=== PATIENT | female | born 1950 | race Caucasian/White ===

== ENCOUNTER 2017-12-03 12:21 | Observation (INO) ==
--- NOTE | 2017-12-03 12:33 | Emergency Department Note ---
Disposition Clinical Impression: Unstable angina Chest pain Qualifiers: Chest pain type: unspecified Qualified Code(s): R07.9 - Chest pain, unspecified Disposition: Admitted As Inpatient Condition: Fair Time of Disposition: 13:09 Chest Pain HPI - General Chief Complaint: ED Chest Pain Stated Complaint: MARILIN Time Seen by Provider: 12/03/17 12:24 Source: patient Mode of arrival: EMS Limitations: no limitations Vital Signs Reviewed: Yes Nursing Notes Reviewed: Yes - History of Present Illness HPI Narrative: 67-year-old female presents for evaluation of chest pain. She noted 2 days ago where she initially had chest pain that radiate into her left neck and jaw. States that that resolved spontaneously. Prior to arrival the patient noted pain was nonexertional. Located in the center of her chest. Without radiation. No history of this pain the past. Patient did feel short of breath and went down to the floor because the pain. Patient denies any nausea or vomiting. No diaphoresis. Patient has history of heart attacks. Denies pulmonary embolisms or blood clots. States that she is concerned because her family always passed with from heart attacks. Patient is tearful on exam. Patient's currently pain-free upon EMS arrival. Received full dose aspirin as well as 2 nitroglycerin prehospital which improved the patient's pain. - Related Data Allergies Allergy/AdvReac Type Severity Reaction Status Date / Time Penicillins [PCN] Allergy Swelling Verified 12/03/17 13:38 of Lip/Tongue/Throat All systems ED: reviewed and negative except as stated. Constitutional: Reports: as per HPI Eyes: Reports: as per HPI ENT ED: Reports: as per HPI Cardiovascular: Reports: as per HPI, chest pain Respiratory: Reports: as per HPI, dyspnea. Denies: cough Gastrointestinal: Reports: as per HPI. Denies: abdominal pain, nausea, vomiting Genitourinary: Reports: as per HPI Musculoskeletal: Reports: as per HPI Integumentary: Reports: as per HPI Neurological: Reports: as per HPI Psychiatric: Reports: as per HPI Chest Pain PMH - Past Medical History Medical history: Reports: GERD, hyperlipidemia, hypertension Surgical history: Reports: - Social History Smoking Status: Never smoker Alcohol use: Reports: none Physical Exam - General Limitations: no limitations General appearance: alert, in no apparent distress, anxious - Head Head exam: atraumatic, normocephalic, normal inspection - Eye Eye exam: Present: normal appearance, EOMI - ENT ENT exam: normal exam, normal oropharynx, mucous membranes moist - Neck Neck exam: Present: normal inspection, trachea midline - Chest Chest inspection: Present: normal inspection, symmetric chest wall rise - Respiratory Respiratory exam: Present: normal lung sounds bilaterally. Absent: respiratory distress - Cardiovascular Cardiovascular exam: Present: regular rate, normal rhythm. Absent: systolic murmur - Abdominal Exam Abdominal exam: Present: soft, Non-Tender - Extremities Exam Extremities exam: Present: normal inspection. Absent: pedal edema - Back Exam Back exam: Present: normal inspection - Neurological Exam Neurological exam: Present: alert, oriented X3 - Skin Skin exam: Present: warm, dry, intact, normal color Course Course Narrative: Patient seen and examined. Patient received full dose aspirin as well as nitroglycerin in route. Patient's pain free initially. She will get cardiac evaluation including EKG labs and troponin. Patient disposition is pending. - Reevaluation(s) Reevaluation #1: Patient's been resting currently. Time: 13:32 Vital Signs Temperature 98.0 F 12/03/17 12:23 Pulse Rate 81 12/03/17 12:23 Respiratory Rate 22 12/03/17 12:23 Blood Pressure 126/83 12/03/17 12:23 O2 Sat by Pulse Oximetry 97 12/03/17 12:23 Temperature 98.0 F 12/03/17 12:23 Pulse Rate 70 12/03/17 13:25 Respiratory Rate 15 12/03/17 14:15 Blood Pressure 108/81 12/03/17 14:15 O2 Sat by Pulse Oximetry 98 12/03/17 13:25 Oxygen Delivery Oxygen Delivery Room Air Chest Pain - [facility] Narrative Medical decision making narrative: 67-year-old female presented for evaluation of chest pain. Patient does have risk factors which include hypertension and diabetes. Patient pain was relieved with nitroglycerin prior to arrival. Patient EKG shows no acute changes. However the patient's symptom onset was just prior to arrival. Patient's labs reviewed. Patient would best be monitored as an inpatient with inpatient evaluation of stress test and continued cardiopulmonary monitoring. Patient did have a negative cardiac evaluation versus car. However the patient does have concerning history of unstable angina with 2 prior episodes. Patient' s acute onset of symptoms and has a negative troponin. Patient would likely need training troponins and possibly a stress test. Patient's agreeable with this plan of care. - Lab Data Lab results reviewed: Yes I reviewed the patient's lab results. Result diagrams: 12/03/17 12:48 12/03/17 12:48 Lab Results 12/03/17 12/03/17 12/03/17 Range/Units 12:48 12:48 12:48 WBC 6.5 (4.3-11.1) K/mcL RBC 4.64 (3.82-4.97) M/mcL Hgb 13.7 (11.5-15.4) g/dL Hct 41.8 (35.3-44.9) % MCV 90.1 (83.0-100.0) fL MCH 29.5 (28.0-33.3) pg MCHC 32.8 (31.6-35.5) g/dL RDW 13.5 (11.5-14.5) % Plt Count 292 (140-400) K/mcL MPV 10.1 (9.4-12.4) fL Immature Gran % 0.5 (0-4) % Seg Neutrophils % 56.9 % Lymphocytes % 31.2 % Monocytes % 9.1 % Eosinophils % 1.7 % Basophils % 0.6 % Neutrophils # 3.7 (1.6-8.9) K/mcL Lymphocytes # 2.0 (0.6-4.6) K/mcL Monocytes # 0.6 (0.0-1.3) K/mcL Eosinophils # 0.1 (0.0-0.6) K/mcL Basophils # 0.0 (0.0-0.2) K/mcL PT 10.5 (9.4-12.1) Seconds INR 1.0 APTT 28.5 (26.0-36.0) Seconds Sodium (136-145) mEq/L Potassium (3.5-5.1) mEq/L Chloride (98-107) mEq/L Carbon Dioxide (23-29) mEq/L BUN (8-23) mg/dL Creatinine (0.60-1.20) mg/dL Est GFR ( Amer) (> 60) Est GFR (Non-Af Amer) (> 60) BUN/Creatinine Ratio (6-26) Glucose (70-105) mg/dL Calculated Osmolality (280-300) Calcium (8.6-10.3) mg/dL Troponin I (< 0.04) ng/mL B-Natriuretic Peptide 13 (Less than 100) pg/mL 12/03/17 12/03/17 Range/Units 12:48 12:48 WBC (4.3-11.1) K/mcL RBC (3.82-4.97) M/mcL Hgb (11.5-15.4) g/dL Hct (35.3-44.9) % MCV (83.0-100.0) fL MCH (28.0-33.3) pg MCHC (31.6-35.5) g/dL RDW (11.5-14.5) % Plt Count (140-400) K/mcL MPV (9.4-12.4) fL Immature Gran % (0-4) % Seg Neutrophils % % Lymphocytes % % Monocytes % % Eosinophils % % Basophils % % Neutrophils # (1.6-8.9) K/mcL Lymphocytes # (0.6-4.6) K/mcL Monocytes # (0.0-1.3) K/mcL Eosinophils # (0.0-0.6) K/mcL Basophils # (0.0-0.2) K/mcL PT (9.4-12.1) Seconds INR APTT (26.0-36.0) Seconds Sodium 140 (136-145) mEq/L Potassium 3.9 (3.5-5.1) mEq/L Chloride 109 H (98-107) mEq/L Carbon Dioxide 25 (23-29) mEq/L BUN 15 (8-23) mg/dL Creatinine 0.74 (0.60-1.20) mg/dL Est GFR ( Amer) > 60 (> 60) Est GFR (Non-Af Amer) > 60 (> 60) BUN/Creatinine Ratio 20 (6-26) Glucose 113 H (70-105) mg/dL Calculated Osmolality 292 (280-300) Calcium 9.0 (8.6-10.3) mg/dL Troponin I < 0.03 (< 0.04) ng/mL B-Natriuretic Peptide (Less than 100) pg/mL - Radiology Data Radiology results reviewed: Yes I reviewed the patient's radiology results. Chest X-Ray 12/03/17 12:30 IMPRESSION: The chest appears clear without acute cardiopulmonary process. D/ / Jeremie Cotton MD / Jeremie Cotton MD Interpreting Provider: Jeremie Cotton MD - EKG Data EKG attestation: Yes I reviewed and interpreted this EKG. EKG shows normal: sinus rhythm Rate: normal Rhythm: NSR [place]/QRS: normal Q waves: aVR, aVF T wave inversions noted in: v1 When compared to previous EKG there are: no significant changes Interpretation: no acute changes SKelsy - Dimitri Situation: Demographics Background: Presenting Complaint Assessment: Vital Signs, Course and respsone to treatment, Patient/Family Expectation Recommendation: Barrier(s) to disposition, Recommendation based on pending studies, treatments, or consults Dimitri Report Given to: Dr. Sowmya Mosley Repor Time: 13:31 Attestation Statement - Attestation Attestation: I examined this patient and my medical decision-making was reviewed with the Resident Physician. I agree with the documented findings, disposition and treatment plan as described except to the extent set forth below. 67-year-old female presents to the emergency department because of chest pain. For the past couple of weeks she has had increasing episodes of substernal chest discomfort with occasional radiation to her arm. Denies specific exertional provocation of symptoms. She has had several episodes of weakness and diaphoresis in association with the chest discomfort. No fevers or chills. No abdominal pain. No leg swelling. No recent long distance travel. It is important to note that her mother one year ago today. Pleasant but anxious female in no apparent physiologic distress. Neck is supple trachea midline. Chest is clear to auscultation bilaterally. No JVD. No carotid bruits appreciated by auscultation. Cardiac exam is regular without rubs or gallops. Abdomen soft, nondistended and nontender. Chest wall is nontender. Extremity is warm and dry without asymmetric edema. No calf tenderness. EKG was normal Initial round of labs are unremarkable. No further episodes in the ED. Due to the recent escalation of her symptoms and increasing intensity of the symptoms she will be admitted for further cardiac evaluation
[2017-12-03 12:55] LABS: Basophils % 0.6 %; Eosinophils # 0.1 K/mcL (0.0-0.6); Eosinophils % 1.7 %; Hematocrit 41.8 % (35.3-44.9); Hemoglobin 13.7 g/dL (11.5-15.4); Immature Granulocytes % 0.5 % (0-4); Lymphocytes % 31.2 %; Mean Corpuscular HGB Conc 32.8 g/dL (31.6-35.5); Mean Corpuscular Hemoglobin 29.5 pg (28.0-33.3); Mean Corpuscular Volume 90.1 fL (83.0-100.0); Mean Platelet Volume 10.1 fL (9.4-12.4); Monocytes # 0.6 K/mcL (0.0-1.3); Monocytes % 9.1 %; Neutrophils # 3.7 K/mcL (1.6-8.9); Platelet Count 292 K/mcL (140-400); Red Blood Count 4.64 M/mcL (3.82-4.97); Red Cell Distribution Width 13.5 % (11.5-14.5); Segmented Neutrophils % 56.9 %
[2017-12-03 13:00] LABS: Prothrombin Time 10.5 Seconds (9.4-12.1)
[2017-12-03 13:03] LABS: Activated Partial Thrombo Time 28.5 Seconds (26.0-36.0)
[2017-12-03 13:15] LABS: BUN/Creatinine Ratio 20 (6-26); Blood Urea Nitrogen 15 mg/dL (8-23); Carbon Dioxide 25 mEq/L (23-29); Chloride 109 mEq/L (98-107); Glucose 113 mg/dL (70-105); Osmolality,Calculated 292 (280-300); Potassium 3.9 mEq/L (3.5-5.1); Sodium 140 mEq/L (136-145); eGFR For African Americans > 60 (> 60); eGFR For Non-African Americans > 60 (> 60)
[2017-12-03] MEDS ORDERED: Ondansetron 4 MG/2 ML VIAL IVP PRN (17:58)
[2017-12-03] MEDS ORDERED: *HR* HYDROcodone/Acet 5/325 mg TABLET PO PRN (17:58)
[2017-12-03] MEDS ORDERED: *HR* Morphine 2 MG/ML SYRINGE IVP PRN (17:58)
[2017-12-03] MEDS ORDERED: Naloxone 0.4 MG/ML INJ IVP PRN (17:58)
[2017-12-03] MEDS ORDERED: Acetaminophen 325 MG TABLET PO PRN (17:58)
[2017-12-03] MEDS ORDERED: Nitroglycerin 0.4 MG TAB.SUBL SL PRN (18:01)
--- NOTE | 2017-12-03 18:06 | Internal Med History&Physical ---
Date of Encounter: 12/03/17 Time of Encounter: 18:03 Assessment and Plan (1) Chest pain Current visit: Yes Status: Acute Will place the pt into tele for observation Since pt is high risk for ACS with age, HLD and FHx of CAD will place the pt on tele check serial troponin so far negative troponin Reviewed CXR no acute infiltrates Reviewed her EKG showed NSR, No ST T changes will start the pt on ASA, Morphine IV PRN, Nitro PRN will check FLP in AM will do stress test in AM NPO after mid night Qualifiers: Chest pain type: unspecified Qualified Code(s): R07.9 - Chest pain, unspecified (2) HLD (hyperlipidemia) Current visit: Yes Status: Acute checl FLP in AM on statin Qualifiers: Hyperlipidemia type: unspecified Qualified Code(s): E78.5 - Hyperlipidemia , unspecified (3) Anxiety Current visit: Yes Status: Acute Resumed home meds started her on Ativan PRN Internal Medicine - H&P: HPI Chief complaint: Chest pain Admitted From: Emergency Dept Plans for Post Hospital Care: Home History of present illness: Ms. Martinez is 67-year-old female with known PMH of HLD, GERD and Anxiety pt presented to ER with chest pain from last 3 days. Pt c/o intermittent CP located sub sternally, more like tightness and non radiating, 5/10 in severity. Pt also mentioned her mother last year same day, since then she gets some anxiety spells too. Pt denied any nausea / vomiting. Denied any SOB. Denied recent travel history. Past Med Surg Social Fam HX - Past Medical History Medical history: GERD, hyperlipidemia, hypertension Psychiatric history: anxiety, depression, panic disorder - Past Surgical History Surgical History: - Social History Smoking Status: Never smoker Smokeless Tobacco Status: No Alcohol use: none Drug use: none - Family History Mother Living Status: Hx Family Cardiac Disorders: Yes (AR, heart stents) Hx Family Respiratory Disorders: Yes (COPD) Hx Family Cancer: Yes (kidney CA, Skin CA) Hx Family GI Disorders: Yes (IBS) Hx Family Genitourinary Disorders: No Hx Family Endocrine Disorder: No Hx Family Musculoskeletal Disorders: No Hx Family Neuromuscular Disorders: No Hx Family Neurologic Disorders: No Hx Family HEENT Disorders: No Hx Family Autoimmune Disorders: No Hx Family Reproductive Disorders: No Hx Family Psychosocial Disorders: No Hx Family Medical Disorders: No Father Hx Family Cardiac Disorders: Yes (AR, CABG) Internal Medicine - H&P: Meds Aspirin [Lo-Dose Aspirin EC] 81 mg PO HS 12/03/17 [History] Atorvastatin [Lipitor] 40 mg PO HS 12/03/17 [History] [place]-3/Dha/Epa/Fish Oil [Fish Oil 1,000 mg Softgel] 1 cap PO HS 12/03/17 [ History] Omeprazole [PriLOSEC] 20 mg PO HS 12/03/17 [History] PARoxetine HCl [Paroxetine HCl] 20 mg PO HS 12/03/17 [History] 3 Allergy/AdvReac Type Severity Reaction Status Date / Time Penicillins [PCN] Allergy Swelling Verified 12/03/17 13:38 of Lip/Tongue/Throat All Systems PM: A 10-system review of systems was performed and is negative for pertinent findings except as documented above in the HPI. Review of systems: Reviewed all the systems everything is benign except the systems and symptoms I mentioned in HPI - Constitutional Vitals: Temp Pulse Resp BP Pulse Ox 98.2 F 71 18 118/60 96 12/03/17 14:35 12/03/17 14:35 12/03/17 14:35 12/03/17 14:35 12/03/17 14:52 General appearance: Present: A&O X 3, no acute distress, answers questions appropriately - Head Head exam: Present: atraumatic, normal inspection - Neck Neck exam general surgery: Present: supple - Respiratory Respiratory exam: Present: decreased breath sounds. Absent: rales, respiratory distress, rhonchi, wheezes - Cardiovascular Cardiovascular exam: Present: RRR, +S1, +S2. Absent: tachycardia - GI/Abdominal GI/Abdominal exam: Present: normal bowel sounds, soft. Absent: rebound, rigid, tenderness - Extremities Exam Extremities exam: Absent: calf tenderness, pedal edema, tenderness - Back Exam Back exam: Absent: CVA tenderness (L), CVA tenderness (R) - Neurological Exam Neurological exam: Present: alert, oriented X3 - Psychiatric Psychiatric exam: Present: normal affect, normal mood - Skin Skin exam: Absent: rash Internal Med - H&P Results - Labs CBC & Chem 7: 12/03/17 12:48 12/03/17 12:48
[2017-12-03] MEDS ORDERED: *HR* LORazepam 0.5 MG TABLET PO PRN (18:12)
[2017-12-03] MEDS ORDERED: Omega-3/Dha/Epa/Fish Oil [Fish Oil 1,000 Mg Softgel] PO SCH (21:00)
[2017-12-03] MEDS ORDERED: Aspirin Enteric Coated 81 MG Tablet PO SCH (21:00)
[2017-12-04] MEDS ORDERED: Regadenoson 0.4 MG/5 ML SYRINGE IVP ONE (06:32)
[2017-12-04 06:55] VITALS: BP 116/71
--- NOTE | 2017-12-04 09:34 | Discharge Summary ---
<BrieNadiya Veraty - Last Filed: 12/04/17 12:58> Date of Encounter: 12/04/17 Time of Encounter: 09:32 - Discharge Diagnosis (1) Chest pain Priority: Primary Status: Acute Qualifiers: Chest pain type: unspecified Qualified Code(s): R07.9 - Chest pain, unspecified (2) HLD (hyperlipidemia) Priority: Secondary Status: Chronic Qualifiers: Hyperlipidemia type: unspecified Qualified Code(s): E78.5 - Hyperlipidemia , unspecified (3) Anxiety Priority: Secondary Status: Chronic - Discharge Medications Home Medications: Aspirin [Lo-Dose Aspirin EC] 81 mg PO HS 12/03/17 [History] Atorvastatin [Lipitor] 40 mg PO HS 12/03/17 [History] [place]-3/Dha/Epa/Fish Oil [Fish Oil 1,000 mg Softgel] 1 cap PO HS 12/03/17 [ History] Omeprazole [PriLOSEC] 20 mg PO HS 12/03/17 [History] PARoxetine HCl [Paroxetine HCl] 20 mg PO HS 12/03/17 [History] Allergies/Adverse Reactions: 3 Allergy/AdvReac Type Severity Reaction Status Date / Time Penicillins [PCN] Allergy Swelling Verified 12/03/17 13:38 of Lip/Tongue/Throat Procedures/tests Complete & Pending: Procedures Performed prior 72 hours Category Date Time Status NM elie perf SPECT multi [NM] Routine Exams 12/03/17 18:01 Taken SP exercise nuclear stress Routine Y 12/03/17 18:01 Completed Date of admission: 12/03/17 13:48 Primary care physician: Mars Vernon, Discharging clinician: Nadiya Baird Anticipated date of discharge: 12/04/17 - Patient Status Disposition: Home, Self-Care Condition: Good Functional capacity at discharge: independent ambulation Overall status at discharge: patient is back to baseline - Discharge Instructions Instructions: Chest Pain (DC) Follow Up With: Mars Vernon DO [Primary Care Provider] - 12/14/17 9:30 am - Diet and Activity Diet: low fat, low cholesterol Interval History: Patient states that she had a twinge of chest pain on arriving back to her room after her stress test. She is wanting to be discharged before noon. Hospital course: Ms. Martinez is a 67 year old female with known PMH of HLD, GERD and Anxiety pt presented to ER with chest pain from last 3 days. Pt c/o intermittent CP located sub sternally, more like tightness and non radiating, 5/10 in severity. Pt also mentioned her mother last year same day, since then she gets some anxiety spells too. Pt denied any nausea / vomiting. Denied any SOB. Denied recent travel history. Her chest x-ray showed no acute infiltrates, EKG showed normal sinus rhythm no ST or T-wave changes. Troponins were negative 4. Fasting lipid panel showed a total cholesterol of 200, LDL of 129, triglycerides 104, HDL of 50. She had a stress test which was normal. On the day of discharge, she was asking to be discharged before noon. - Time Spent with Patient Total time spent providing and/or coordinating discharge services: - Constitutional Vitals: Temp Pulse Resp BP Pulse Ox 98.7 F 65 19 116/71 95 12/04/17 06:54 12/04/17 06:54 12/04/17 06:54 12/04/17 06:54 12/04/17 06:54 General appearance: Present: A&O X 3, no acute distress, answers questions appropriately Exam: Chest: No chest pain at rest during physical exam; chest pain not producible by palpation - Head Head exam: Present: atraumatic, normocephalic - Eye Eye exam: Present: PERRL, conjuntiva pink, sclera anicteric Pupils: Present: PERRL - Neck Neck exam general surgery: Present: supple, trachea midline. Absent: lymphadenopathy - Respiratory Respiratory exam: Present: CTAB. Absent: accessory muscle use, rales, rhonchi, wheezes - Cardiovascular Cardiovascular exam: Present: RRR, +S1, +S2. Absent: diastolic murmur, gallop, rubs, systolic murmur - GI/Abdominal GI/Abdominal exam: Present: normal bowel sounds, soft, no peritoneal signs. Absent: distended, tenderness - Extremities Exam Extremities exam: Present: warm, radial pulses palpable and symmetrical. Absent : calf tenderness, cyanotic, pedal edema - Neurological Exam Neurological exam: Present: CN II-XII intact, oriented X3, no focal deficits. Absent: pronater drift, facial droop, speech deficit - Skin Skin exam: Present: dry, intact <Thallapaneni,Rambabu - Last Filed: 12/04/17 16:05> Date of Encounter: 12/04/17 - Discharge Diagnosis (1) Chest pain Status: Acute Qualifiers: Chest pain type: unspecified Qualified Code(s): R07.9 - Chest pain, unspecified (2) HLD (hyperlipidemia) Status: Chronic Qualifiers: Hyperlipidemia type: unspecified Qualified Code(s): E78.5 - Hyperlipidemia , unspecified (3) Anxiety Status: Chronic Procedures/tests Complete & Pending: Procedures Performed prior 72 hours Category Date Time Status NM elie perf SPECT multi [NM] Routine Exams 12/03/17 18:01 Taken SP exercise nuclear stress Routine Y 12/03/17 18:01 Completed Date of admission: 12/03/17 13:48 Primary care physician: Mars Vernon, [facility] course: Ms. Martinez is a 67 year old female - Time Spent with Patient Total time spent providing and/or coordinating discharge services: - Constitutional Vitals: Temp Pulse Resp BP Pulse Ox 98.7 F 65 19 116/71 95 12/04/17 06:54 12/04/17 06:54 12/04/17 06:54 12/04/17 06:54 12/04/17 06:54 - Attending Attestation I examined this patient and my medical decision-making was reviewed with the Resident Physician Dr. Baird. I agree with the documented findings, disposition and treatment plan as described except to the extent set forth below. Ms. Martinez is a 67 year old female with known PMH of HLD, GERD and Anxiety pt presented to ER with chest pain from last 3 days. She was admitted in the hospital and checked serial troponin which were negative. Since she is high risk for ACS with significant FH, did stress test which came back as negative for ACS. So will d/c her home today in stable condition. Gen: A,A, O x 3 Chest: CTA, No wheezing Heart; S1S2+
--- NOTE | 2017-12-04 12:23 | Electrocardiograph Report ---
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
== END 2017-12-04 13:44 | disposition home or self-care (01) ==
LOC: 3BNU 12:21 → EMEROO 12:21 → 3BNU 14:21
PROVIDERS: ADMIT Internal Medicine; ATTEND Registered Nurse